=== PATIENT | female | born 2000 | race African-American/Black ===

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

== ENCOUNTER 2022-01-06 12:58 | Emergency (ER) | payer MEDICAID ==
[~2022-01-06] VITALS: Ht 165.1 cm; Wt 54.0 kg
[~2022-01-06 12:58] MED LIST changes: +ONDA4TAB5 MT
[2022-01-06 13:05] VITALS: BP 114/68
== END 2022-01-06 16:17 | disposition home or self-care (01) ==
LOC: ER 13:24
DX: N89.8 Other specified noninflammatory disorders of vagina (principal); N94.6 Dysmenorrhea, unspecified
CPT/HCPCS: 81025; 99282

== ENCOUNTER 2022-06-17 19:17 | Emergency (ER) | payer MEDICAID, OTHER ==
[~2022-06-17] VITALS: Ht 165.1 cm; Wt 57.0 kg
[2022-06-17 19:23] VITALS: BP 110/77
[2022-06-17 20:32] LABS: CLARITY URINE CLEAR (CLEAR); COLOR URINE YELLOW (YELLOW); KETONES URINE NEGATIVE (NEGATIVE); LEUKOCYTE ESTERASE URINE NEGATIVE (NEGATIVE); NITRITE URINE NEGATIVE (NEGATIVE); OCCULT BLOOD URINE NEGATIVE (NEGATIVE); PROTEIN URINE NEGATIVE (NEGATIVE); SPECIFIC GRAVITY URINE 1.017 (1.005-1.030); UROBILINOGEN URINE 0.2 E.U./dL (0.2-1.0)
== END 2022-06-17 23:30 | disposition left against medical advice (07) ==
LOC: ER 19:17
DX: Z53.21 Procedure and treatment not carried out due to patient leaving prior to being seen by health care provider (principal)
CPT/HCPCS: 81003; 81025

== ENCOUNTER 2023-07-17 12:03 | Emergency (ER) | payer MEDICAID, OTHER ==
[~2023-07-17] VITALS: Ht 160 cm; Wt 66.0 kg
[2023-07-17 12:11] VITALS: O2SAT 99
[2023-07-17 12:32] LABS: CLARITY URINE TURBID (CLEAR); COLOR URINE YELLOW (YELLOW); GLUCOSE URINE NEGATIVE (NEGATIVE); KETONES URINE NEGATIVE (NEGATIVE); LEUKOCYTE ESTERASE URINE 3+ (NEGATIVE); NITRITE URINE NEGATIVE (NEGATIVE); OCCULT BLOOD URINE 3+ (NEGATIVE); PROTEIN URINE 1+ (NEGATIVE); SPECIFIC GRAVITY URINE 1.014 (1.005-1.030)
[2023-07-17 12:49] LABS: SQUAMOUS EPITHELIAL CELL URINE 3+ /lpf (RARE/1+)
[2023-07-17 12:50] LABS: BACTERIA URINE 1+; RBC URINE 50-100 /hpf (0-2)
[2023-07-17 12:51] LABS: WBC URINE 25-50 /hpf (0-2)
[2023-07-17] MEDS ORDERED: CEPH250C2 MT (14:12)
[2023-07-17] MEDS ORDERED: DOXY100T2 MT (14:12)
[2023-07-17] MEDS ORDERED: PHEN95TA25 MT (14:12)
[2023-07-17] MEDS ORDERED: IBUP-2028 MT (14:12)
[2023-07-17 14:28] VITALS: BP 124/78; PULSE 87; RESP 18; TEMP 98.9
[2023-07-20 04:09] LABS: CHLAMYDIA TRACHOMATIS NAA Negative (Negative); NEISSERIA GONORRHOEAE NAA Negative (Negative)
== END 2023-07-17 14:30 | disposition home or self-care (01) ==
LOC: ER 13:03
DX: N39.0 Urinary tract infection, site not specified (principal); Z79.899 Other long term (current) drug therapy
CPT/HCPCS: 81003; 81025; 87077; 87491; 87591; 99283

== ENCOUNTER 2023-12-26 19:09 | Emergency (ER) | payer OTHER, MEDICAID ==
[~2023-12-26] VITALS: Ht 165.1 cm; Wt 69.7 kg
[~2023-12-26 19:09] MED LIST changes: +CEPH250C2 MT; +DOXY100T2 MT; +IBUP-2028 MT; +PHEN95TA25 MT
[2023-12-26 19:19] VITALS: TEMP 98.3; O2SAT 100
[2023-12-26 19:51] LABS: CLARITY URINE CLEAR (CLEAR); COLOR URINE YELLOW (YELLOW); GLUCOSE URINE NEGATIVE (NEGATIVE); KETONES URINE NEGATIVE (NEGATIVE); LEUKOCYTE ESTERASE URINE NEGATIVE (NEGATIVE); NITRITE URINE NEGATIVE (NEGATIVE); OCCULT BLOOD URINE NEGATIVE (NEGATIVE); PH URINE 5.5 (4.5-8.0); PROTEIN URINE NEGATIVE (NEGATIVE); SPECIFIC GRAVITY URINE 1.022 (1.005-1.030)
[2023-12-26] MEDS ORDERED: DOCU-138 MT (20:58)
[2023-12-26] MEDS ORDERED: FLUC150T46 MT (20:58)
[2023-12-26 21:34] VITALS: BP 102/56; PULSE 71; RESP 18
[2023-12-30 04:08] LABS: CHLAMYDIA TRACHOMATIS NAA Negative (Negative); NEISSERIA GONORRHOEAE NAA Negative (Negative)
== END 2023-12-26 21:25 | disposition home or self-care (01) ==
LOC: ER 19:09
DX: B37.31 Acute candidiasis of vulva and vagina (principal); Z79.899 Other long term (current) drug therapy
CPT/HCPCS: 87491; 87591; 81003; 81025; 87210; 99283; Z7610

== ENCOUNTER 2024-04-07 20:57 | Emergency (ER) | payer MEDICAID, OTHER ==
[~2024-04-07] VITALS: Ht 162.6 cm; Wt 69.0 kg
[~2024-04-07 20:57] MED LIST changes: +DOCU-138 MT; +FLUC150T46 MT
[2024-04-07 21:44] VITALS: O2SAT 100
[2024-04-08 01:48] VITALS: BP 120/66; PULSE 82; RESP 18; TEMP 98.2
== END 2024-04-08 01:50 | disposition home or self-care (01) ==
LOC: ER 20:57
DX: S99.922A Unspecified injury of left foot, initial encounter (principal); Z79.899 Other long term (current) drug therapy; Z98.890 Other specified postprocedural states; X58.XXXA Exposure to other specified factors, initial encounter; Y93.89 Activity, other specified; Y92.89 Other specified places as the place of occurrence of the external cause; Y99.8 Other external cause status
CPT/HCPCS: 73630; 29515; 99283; Z7610

== ENCOUNTER 2024-08-16 19:44 | Emergency (ER) | payer MEDICAID ==
[~2024-08-16] VITALS: Ht 162.6 cm; Wt 71.0 kg
[2024-08-16 19:51] VITALS: TEMP 98.5; O2SAT 100
[2024-08-16 20:36] LABS: CLARITY URINE CLEAR (CLEAR); COLOR URINE YELLOW (YELLOW); GLUCOSE URINE NEGATIVE (NEGATIVE); KETONES URINE 1+ (NEGATIVE); LEUKOCYTE ESTERASE URINE NEGATIVE (NEGATIVE); NITRITE URINE NEGATIVE (NEGATIVE); OCCULT BLOOD URINE 1+ (NEGATIVE); PROTEIN URINE NEGATIVE (NEGATIVE); SPECIFIC GRAVITY URINE 1.023 (1.005-1.030); UROBILINOGEN URINE 0.2 E.U./dL (0.2-1.0)
[2024-08-16 20:41] LABS: UCG KIT LOT# 865648; UCG SCREEN NEGATIVE
[2024-08-16 20:46] LABS: BACTERIA URINE 2+; SQUAMOUS EPITHELIAL CELL URINE 1+ /lpf (RARE/1+); WBC URINE 0-2 /hpf (0-2)
[2024-08-16 21:31] LABS: BASOPHILS % 0.9 % (0.0-2.0); EOSINOPHILS % 3.7 % (0.0-5.0); HEMATOCRIT. 38.1 % (36.0-48.0); HEMOGLOBIN. 12.8 g/dL (12.0-16.0); LYMPHOCYTES % 32.9 % (20.0-50.0); MEAN CORPUSCULAR HEMOGLOBIN 29.9 pg (28.0-32.0); MEAN CORPUSCULAR HGB CONC 33.6 g/dL (31.0-37.0); MEAN CORPUSCULAR VOLUME 89.1 fL (81.0-99.0); MEAN PLATELET VOLUME 7.8 fl (7.4-10.4); MONOCYTES % 9.8 % (2.0-8.0); NEUTROPHILS % 52.7 % (40.0-76.0); PLATELET 297 x1000/uL (130-400); RED BLOOD CELL COUNT 4.27 mill/uL (4.2-5.4); RED CELL DISTRIBUTION WIDTH 12.8 % (11.6-14.6); WHITE BLOOD COUNT 6.2 x1000/uL (4.5-11.0)
[2024-08-16] MEDS ORDERED: MICO14CR6 TP (23:49)
[2024-08-17 00:02] VITALS: BP 111/72; PULSE 82; RESP 15; O2SAT 100
[2024-08-19 04:08] LABS: CHLAMYDIA TRACHOMATIS NAA Negative (Negative); NEISSERIA GONORRHOEAE NAA Negative (Negative)
== END 2024-08-17 00:07 | disposition home or self-care (01) ==
LOC: ER 19:44
DX: N76.0 Acute vaginitis (principal); Z79.899 Other long term (current) drug therapy; Z87.19 Personal history of other diseases of the digestive system
CPT/HCPCS: 87491; 87591; 81003; 81025; 85025; 86850; 86900; 86901; 36415; 99283; Z7610

== ENCOUNTER 2024-08-27 11:44 | Emergency (ER) | payer MEDICAID ==
[~2024-08-27] VITALS: Ht 167.6 cm; Wt 75.0 kg
[~2024-08-27 11:44] MED LIST changes: +MICO14CR6 TP
[2024-08-27 12:00] VITALS: TEMP 98.5; O2SAT 100
[2024-08-27] MEDS: TETRACAINE 0.5% OPHTH DROPS 4ML LEFTEYE ONE (14:25)
[2024-08-27] MEDS: FLUORESCEIN SODIUM 1MG/STRIP LEFTEYE ONE (14:25)
[2024-08-27] MEDS ORDERED: POLY10DR18 EACHEYE (14:45)
[2024-08-27 14:55] VITALS: BP 115/60; PULSE 80; RESP 17; O2SAT 100
== END 2024-08-27 14:59 | disposition home or self-care (01) ==
LOC: ER 11:57
DX: H57.12 Ocular pain, left eye (principal); Z79.899 Other long term (current) drug therapy; Z98.890 Other specified postprocedural states
CPT/HCPCS: 99283